=== PATIENT | male | born 1970 | race Caucasian/White ===

== ENCOUNTER 2022-10-28 07:37 | Day surgery (SDC) | payer BC ==
[2022-10-26 08:49] VITALS: BMI 34.4
[2022-10-28] MEDS ORDERED: Lidocaine 1% PF 5 ML VIAL ONE (08:02)
[2022-10-28] MEDS ORDERED: Sodium Bicarbonate 2.5 MEQ/5 ML VIAL ONE (08:02)
[2022-10-28] MEDS ORDERED: Iopamidol-M 200 41% 10 ML VIAL FS ONE (11:00)
== END 2022-10-28 09:45 | disposition home or self-care (01) ==
LOC: CSHRAD 07:37
PROVIDERS: ATTEND Specialist
PROC: B02BY0Z Computerized Tomography (CT Scan) of Spinal Cord using Other Contrast, Unenhanced and Enhanced (ICD-10-PCS; principal; 2022-10-28)
DX: M96.1 Postlaminectomy syndrome, not elsewhere classified (principal); M54.17 Radiculopathy, lumbosacral region; M47.16 Other spondylosis with myelopathy, lumbar region; G89.4 Chronic pain syndrome; M46.1 Sacroiliitis, not elsewhere classified; M70.61 Trochanteric bursitis, right hip; M70.62 Trochanteric bursitis, left hip; N28.89 Other specified disorders of kidney and ureter; I10 Essential (primary) hypertension; G47.33 Obstructive sleep apnea (adult) (pediatric); F32.A Depression, unspecified; Z98.1 Arthrodesis status; Z79.899 Other long term (current) drug therapy; Z79.891 Long term (current) use of opiate analgesic
CPT/HCPCS: 62304; 72132

== ENCOUNTER 2023-08-12 09:16 | Day surgery (SDC) | payer BC | END 2023-08-12 12:03 | disposition home or self-care (01) | LOC: CSHRAD 09:16 | PROVIDERS: ATTEND Specialist | PROC: B01BYZZ Fluoroscopy of Spinal Cord using Other Contrast (ICD-10-PCS; principal; 2023-08-12) | DX: M54.12 Radiculopathy, cervical region (principal); M54.16 Radiculopathy, lumbar region | CPT/HCPCS: 62302; 62304; 72126; 72132 ==

== ENCOUNTER 2023-10-07 15:17 | Outpatient (CLI) | payer BC | END 2023-10-07 15:18 | disposition home or self-care (01) | LOC: CSHRAD 15:17 | PROVIDERS: ATTEND Physician Assistant Surgical | DX: M54.16 Radiculopathy, lumbar region (principal); Z98.890 Other specified postprocedural states | CPT/HCPCS: 72110 ==